=== PATIENT | female | born 1990 | race Caucasian/White ===

== ENCOUNTER 2018-09-14 20:27 | Emergency (ER) | payer BC, SELFPAY ==
--- NOTE | 2018-09-14 20:52 | RAD ---
3 views right foot: 09/14/2018 COMPARISON: None HISTORY: Injury, trauma, pain FINDINGS: No fracture or dislocation. No radiopaque foreign body or subcutaneous gas. IMPRESSION: No acute findings.
== END 2018-09-14 21:58 | disposition home or self-care (01) ==
LOC: ERS 20:27
DX: S90.31XA Contusion of right foot, initial encounter (principal); I10 Essential (primary) hypertension; F41.9 Anxiety disorder, unspecified; F17.210 Nicotine dependence, cigarettes, uncomplicated; W20.8XXA Other cause of strike by thrown, projected or falling object, initial encounter

== ENCOUNTER 2018-11-05 08:42 | Emergency (ER) | payer SELFPAY | END 2018-11-05 10:41 | disposition home or self-care (01) | LOC: ERS 08:42 | DX: T23.001A Burn of unspecified degree of right hand, unspecified site, initial encounter (principal); I10 Essential (primary) hypertension; F41.9 Anxiety disorder, unspecified; F17.210 Nicotine dependence, cigarettes, uncomplicated; X19.XXXA Contact with other heat and hot substances, initial encounter | CPT/HCPCS: 99283 ==

== ENCOUNTER 2019-09-12 14:56 | Emergency (ER) | payer SELFPAY ==
--- NOTE | 2019-09-12 15:27 | RAD ---
XR Foot Lt 3 View STANDARD History: Foreign body between fourth and fifth toes Comparison: Radiograph 2013 Findings: No acute fracture or malalignment. No radiopaque foreign object is appreciated. Impression: No acute osseous abnormality. Ovoid calcification projecting over the fifth metatarsal he ad is felt to be an ossicle and has only slightly increased in size from 2013.
== END 2019-09-12 17:38 | disposition home or self-care (01) ==
LOC: ERS 14:56
DX: S90.852A Superficial foreign body, left foot, initial encounter (principal); F17.210 Nicotine dependence, cigarettes, uncomplicated; W45.8XXA Other foreign body or object entering through skin, initial encounter
CPT/HCPCS: 10120

== ENCOUNTER 2020-08-08 18:37 | Emergency (ER) | payer SELFPAY ==
[2020-08-08] MEDS ORDERED: Metoclopramide HCl 10 MG/2 ML VIAL ONE (20:21)
[2020-08-08] MEDS ORDERED: Ketorolac Tromethamine 30 MG/ML VIAL ONE (20:21)
[2020-08-08] MEDS ORDERED: diphenhydrAMINE 50 MG/ML VIAL ONE ×2 (20:21→20:30)
== END 2020-08-08 21:53 | disposition home or self-care (01) ==
LOC: ERS 18:37
DX: R51.9 Headache, unspecified (principal); I10 Essential (primary) hypertension; F17.210 Nicotine dependence, cigarettes, uncomplicated
CPT/HCPCS: 96365; 96375; J1200; J1885; J2765